=== PATIENT | female | born 1985 | race Caucasian/White ===

== ENCOUNTER 2016-07-01 10:06 | Emergency (ER) | payer SELFPAY ==
[~2016-07-01] VITALS: Ht 165.1 cm; Wt 91.0 kg
[2016-07-01 17:23] LABS: CLARITY URINE TURBID (CLEAR); COLOR URINE RED (YELLOW); GLUCOSE URINE NEGATIVE (NEGATIVE); KETONES URINE NEGATIVE (NEGATIVE); LEUKOCYTE ESTERASE URINE 2+ (NEGATIVE); NITRITE URINE POSITIVE (NEGATIVE); OCCULT BLOOD URINE 2+ (NEGATIVE); PROTEIN URINE 2+ (NEGATIVE); SPECIFIC GRAVITY URINE 1.021 (1.005-1.030); UROBILINOGEN URINE 0.2 E.U./dL (0.2-1.0)
[2016-07-01 17:37] LABS: BACTERIA URINE 1+
[2016-07-01 17:38] LABS: RBC URINE TNTC /hpf (0-2); SQUAMOUS EPITHELIAL CELL URINE FEW /lpf (RARE/1+)
[2016-07-01 18:58] LABS: HEMATOCRIT 34.2 % (36.0-48.0); HEMOGLOBIN 11.9 g/dL (12.0-16.0); MEAN CORPUSCULAR HEMOGLOBIN 27.5 pg (28.0-32.0); MEAN CORPUSCULAR HGB CONC 34.7 g/dL (31.0-37.0); MEAN CORPUSCULAR VOLUME 79.1 fL (81.0-99.0); PLATELET 222 x1000/uL (130-400); RED BLOOD CELL COUNT 4.33 mill/uL (4.2-5.4); RED CELL DISTRIBUTION WIDTH 13.7 % (11.6-14.6); WHITE BLOOD COUNT 6.3 x1000/uL (4.5-11.0)
[2016-07-01 19:02] VITALS: BP 124/65
== END 2016-07-01 19:53 | disposition home or self-care (01) ==
LOC: ER 17:21
DX: N92.1 Excessive and frequent menstruation with irregular cycle (principal); N39.0 Urinary tract infection, site not specified; Z97.5 Presence of (intrauterine) contraceptive device; N94.6 Dysmenorrhea, unspecified; Z98.890 Other specified postprocedural states
CPT/HCPCS: 36415; 81001; 81025; 85027; 99284; Z7610